=== PATIENT | male | born 1935 | race Caucasian/White ===

== ENCOUNTER 2016-09-19 09:56 | Inpatient (IN) | payer OTHER ==
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
[2016-09-19] MEDS ORDERED: ACETAMINOPHEN 325 MG TABLET (FP) PO ONE ×2 (10:48→17:00)
[2016-09-19] MEDS ORDERED: ACETAMINOPHEN 325 MG TABLET (FP) ONE ×2 (10:55→16:40)
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
--- NOTE | 2016-09-19 12:51 | EKG ---
Test Reason : Blood Pressure : / mmHG Vent. Rate : 058 BPM Atrial Rate : 058 BPM P-R Int : 158 ms QRS Dur : 122 ms QT Int : 434 ms P-R-T Axes : 028 -35 009 degrees QTc Int : 426 ms SINUS BRADYCARDIA LEFT AXIS DEVIATION LEFT VENTRICULAR HYPERTROPHY WITH QRS WIDENING ABNORMAL ECG WHEN COMPARED WITH ECG OF 20-NOV-2014 18:05, T WAVE INVERSION NOW EVIDENT IN INFERIOR LEADS Confirmed by JUANITA PEREZ, EDGAR ([id number]) on 09/19/2016 12:51:09 PM Referred By: Confirmed By:EDGAR GRANT MD
[2016-09-19 14:57] LABS: BASOPHIL 0.6 % (0-2.0); EOSINOPHIL 1.3 % (0-4.5); MCH 31.9 pg (25.7-33.7); MCHC 32.9 g/dl (32.0-35.9); MEAN CELL VOLUME 96.9 fl (80-96); MEAN PLT VOLUME 9.3 fl (7.5-11.1); NEUTROPHILS 75.9 % (42.8-82.8); PLATELET COUNT 133 K/MM3 (134-434); RDW 13.6 % (11.9-15.9); WHITE BLOOD COUNT 8.9 K/mm3 (4.0-10.0)
[2016-09-19 15:14] LABS: ALBUMIN 3.5 g/dl (3.4-5.0); CALCIUM 8.8 mg/dL (8.5-10.1)
[2016-09-19 15:20] LABS: BILIRUBIN,TOTAL 0.3 mg/dL (0.2-1.0); CREATININE 1.2 mg/dL (0.7-1.3); TOT PROT 6.5 g/dl (6.4-8.2); TROPONIN I 0.05 ng/ml (0.00-0.05)
[2016-09-19 22:36] LABS: TROPONIN I 0.03 ng/ml (0.00-0.05)
[2016-09-19 23:14] VITALS: BMI 25.6
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
[2016-09-20] MEDS ORDERED: ACETAMINOPHEN 325 MG TABLET (FP) PO PRN (01:04)
[2016-09-20] MEDS ORDERED: metFORMIN HCL 500 MG TABLET (FP) PO SCH (07:00)
[2016-09-20 07:37] LABS: BASOPHIL 0.5 % (0-2.0); EOSINOPHIL 2.6 % (0-4.5); MCH 32.1 pg (25.7-33.7); MCHC 33.5 g/dl (32.0-35.9); MEAN CELL VOLUME 95.8 fl (80-96); MEAN PLT VOLUME 7.8 fl (7.5-11.1); NEUTROPHILS 67.5 % (42.8-82.8); PLATELET COUNT 153 K/MM3 (134-434); RDW 13.4 % (11.9-15.9); WHITE BLOOD COUNT 6.2 K/mm3 (4.0-10.0)
[2016-09-20 08:07] LABS: ALBUMIN 3.2 g/dl (3.4-5.0); ANION GAP 10 (8-16); CALCIUM 8.6 mg/dL (8.5-10.1); CO2 27 mmol/L (21-32); GLUCOSE,RANDOM 136 mg/dL (74-106)
[2016-09-20 08:14] LABS: ALK PHOS 66 U/L (45-117); BILIRUBIN,TOTAL 0.5 mg/dL (0.2-1.0); SGOT/AST 45 U/L (15-37); SGPT/ALT 47 U/L (12-78); TOT PROT 6.3 g/dl (6.4-8.2); TROPONIN I 0.02 ng/ml (0.00-0.05)
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
[2016-09-20] MEDS ORDERED: RAMIPRIL 5 MG CAPSULE (FP) PO SCH (10:00)
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
[2016-09-20 15:08] VITALS: BP 133/58; PULSE 72; TEMP 97.2
[2016-09-20] MEDS ORDERED: PRAMIPEXOLE DI HCL 0.375 MG PO SCH (22:00)
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
== END 2016-09-20 19:00 | disposition home or self-care (01) | DRG 135 ==
LOC: JER 09:56 → JERBED 19:36 → J4S 22:24 → OBSVTOIN 09-20 01:08
PROVIDERS: ADMIT Internal Medicine; ATTEND Internal Medicine
DX: S22.20XA Unspecified fracture of sternum, initial encounter for closed fracture (principal); S20.219A Contusion of unspecified front wall of thorax, initial encounter; K57.92 Diverticulitis of intestine, part unspecified, without perforation or abscess without bleeding; I65.29 Occlusion and stenosis of unspecified carotid artery; I10 Essential (primary) hypertension; G20 Parkinson's disease; E11.9 Type 2 diabetes mellitus without complications; V43.52XA Car driver injured in collision with other type car in traffic accident, initial encounter; W22.11XA Striking against or struck by driver side automobile airbag, initial encounter; Y92.89 Other specified places as the place of occurrence of the external cause; Z87.891 Personal history of nicotine dependence; Z87.442 Personal history of urinary calculi
CPT/HCPCS: 36415; 71020-TC; 71260-TC; 73110-TC-RT; 73130-TC-RT; 80053; 82550; 82553; 84484; 85025; 93005; 93010; 93306-TC; 99284-25; G0378